=== PATIENT | female | born 1965 | race Caucasian/White ===

== ENCOUNTER → 2018-05-19 13:00 | Outpatient (CLI) | payer OTHER, SELFPAY | PROVIDERS: Family Provider Family Medicine; PCP Family Medicine | DX: Z23 Encounter for immunization (principal) | CPT/HCPCS: 90471; 90686 ==

== ENCOUNTER → 2018-07-02 14:08 | Outpatient (CLI) | payer OTHER, SELFPAY ==
--- NOTE | 2018-07-02 | DI.RAD.S_ITS ---
PROCEDURE: XR CHEST 2V INDICATIONS: COUGH TECHNIQUE: 2 views of the chest were acquired. COMPARISON: None. FINDINGS: Surgical changes and devices: None. Lungs and pleura: No pleural effusions or pneumothorax. Lungs are clear. 3 mm high density projecting in the left lung base on the frontal images not confirmed on the lateral view. Mediastinum: Mediastinal contours are normal. Heart size is normal. Bones and chest wall: No suspicious bony abnormalities. Soft tissues appear unremarkable. IMPRESSION: No acute disease. Dictated by: Rafy Peña M.D. on 07/02/2018 at 16:16 Approved by: Rafy Peña M.D. on 07/02/2018 at 16:18
== END ==
PROVIDERS: PCP Family Medicine; Visit Provider Family Medicine
DX: R05 Cough (principal)
CPT/HCPCS: 71046

== ENCOUNTER → 2018-08-14 11:50 | Outpatient (CLI) | payer OTHER, SELFPAY ==
--- NOTE | 2018-08-14 | DI.RAD.S_ITS ---
PROCEDURE: XR KNEE RT 3V INDICATIONS: RIGHT KNEE PAIN TECHNIQUE: 3 views of the knee were acquired. COMPARISON: None. FINDINGS: Bones: No fractures or dislocations. No suspicious bony lesions. Soft tissues: Moderate joint effusion. No suspicious soft tissue calcifications. IMPRESSION: Moderate effusion. No visualized acute fracture or dislocation. However, if clinical concern and/or pain persist, short interval imaging followup in 7-10 days is recommended, as occult injury cannot be definitively excluded. Dictated by: Elis Wan M.D. on 08/14/2018 at 12:34 Approved by: Elis Wan M.D. on 08/14/2018 at 12:34
== END ==
PROVIDERS: PCP Family Medicine; Visit Provider Family Medicine
DX: M25.561 Pain in right knee (principal); M25.461 Effusion, right knee
CPT/HCPCS: 73562

== ENCOUNTER → 2018-08-19 14:12 | Outpatient (CLI) | payer OTHER, SELFPAY ==
--- NOTE | 2018-08-19 | DI.MRI.S_ITS ---
PROCEDURE: MR KNEE RT WO CON INDICATIONS: Right knee pain TECHNIQUE: Noncontrast sagittal PD fast spin echo and T2 fast spin echo with fat saturation, sagittal 3-D FLASH with fat saturation; coronal T1 spin echo and PD fast spin echo with fat saturation, and axial PD fast spin echo with fat saturation through the knee. COMPARISON: [facility], CR, XR KNEE RT 3V, 08/14/2018, 11:56. FINDINGS: Image quality: Excellent. Menisci: Linear high signal intensity horizontally traverses the posterior horn medial meniscus, demonstrating inferior articular surface extension, indicating horizontal tearing. Amorphous high signal intensity within the medial meniscal body is present without articular surface extension, consistent with myxoid degeneration. Lateral meniscus is intact. Cruciate ligaments: The anterior and posterior cruciate ligaments appear intact. Medial structures: The medial collateral ligament appears intact. There is a small amount of fluid deep to the medial collateral ligament. Visualized portions of the pes anserinus tendons appear normal. There is a small amount of medial bursal fluid. Lateral structures: The lateral collateral ligament, long and short heads of the biceps femoris tendon appear intact. The popliteus tendon appears normal. Iliotibial band appears normal. Anterior structures: The quadriceps and patellar tendons appear intact. Patellar alignment is normal. No femoral trochlear dysplasia or ventral trochlear prominence. No edema in the infrapatellar fat pad. Bones and cartilage: No bone marrow contusions or fractures. Mild diffuse articular cartilage loss overlies the weightbearing aspects of the medial femoral condyle and medial tibial plateau. Mild articular cartilage loss overlies the lateral patellar facet. Joint space: There is physiologic knee joint fluid. No Nunez's cyst. Normal appearing synovial plicae are incidentally noted. IMPRESSION: 1. Medial meniscal degeneration and tearing as described above. 2. Mild medial bursitis. 3. Medial collateral ligament bursitis. 4. Medial and patellofemoral compartment articular cartilage loss. Dictated by: Yeny Wick M.D. on 08/19/2018 at 15:53 Approved by: Yeny Wick M.D. on 08/19/2018 at 15:56
== END ==
PROVIDERS: Family Provider Family Medicine; PCP Family Medicine; Visit Provider Family Medicine
DX: M25.561 Pain in right knee (principal); S83.241A Other tear of medial meniscus, current injury, right knee, initial encounter; M71.561 Other bursitis, not elsewhere classified, right knee
CPT/HCPCS: 73721

== ENCOUNTER 2018-08-24 08:15 | Outpatient (RCR) | payer OTHER, SELFPAY ==
--- NOTE | 2018-08-26 10:05 | PT.OIE ---
Current Diagnoses Pain in right knee (08/24/18) Provider Visit Care Team Role Provider Type Agnieszka Michelle MD Attending Provider Physician Family Provider Primary Care Provider Specialty: Family Practice Address: [address] [place] [address], [facility] Email: Physical Therapy Initial Evaluation PT-OP-A Visit Information Start: 08/24/18 07:28 Freq: Status: Active Protocol: Document 08/24/18 08:15 AMB (Rec: 08/24/18 08:18 AMB [id number]) Out-Patient Physical Therapy Visit Information Visit Information Visit Type Initial Evaluation Visit Start Time 08:15 Visit Stop Time 09:00 Total Visit Minutes 45 Evaluation Information Evaluation Date 08/24/18 PT-OP-B Current Condition Start: 08/24/18 07:28 Freq: Status: Active Protocol: Document 08/24/18 08:15 AMB (Rec: 08/26/18 08:13 AMB [email or web address]) Current Condition History of Current Condition Onset Date summer 2017 Current Complaints right medial knee pain, locking History of Current Condition The patient reports knee pain that is fairly constant, worse with activity (sit to stand, walking). Pt has not been hiking as much due to the pain . Denies specific injury. Does have a history of patellor femoral issues ( reports R knee cap slipped years ago). Prior Treatments and Tests MRI: 08/19/18: medial miniscal degeneration, MCL bursitis, medial and patellofemoral compartment articular cartilage loss. Treatment Goals Patient/Caregiver Goals Reduce knee pain Prior Functional Status Baseline Function- ADL's Independent Baseline Function- Mobility Independent Current Functional Impairments (Reported) Functional Limitations- Mobility/Gait Pt is limiting her activity, walking less. 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 PT-OP-C Subjective Start: 08/24/18 07:28 Freq: Status: Active Protocol: Document 08/24/18 08:15 AMB (Rec: 08/25/18 08:57 AMB [id number]) Patient Questionnaires Lower Extremity Functional Scale LEFS Score 44 LEFS Impairment 40 to 59% Impaired (Score 32- 47) OP-PT Pain Assessment Location Right Medial Knee Intensity 3 PT-OP-F Manual Assessment Start: 08/24/18 07:28 Freq: Status: Active Protocol: Document 08/24/18 08:15 AMB (Rec: 08/26/18 09:37 AMB [email or web address]) Manual Assessments Soft Tissue Assessment Soft Tissue Mobility Assessment Tender to palpation at medial joint line with mild joint effusion. PT-OP-G Mobility & Gait Start: 08/24/18 07:28 Freq: Status: Active Protocol: Document 08/24/18 08:15 AMB (Rec: 08/26/18 09:37 AMB [email or web address]) OP Gait Assessment Comments Gait Comments Pt concentrating on not limping so had good arm swing on L, but absent arm swing on R. Minimally antalgic gait with less weightbearing on the right, naturally more of a valgus knee posture. PT-OP-J Posture/Palpation/Skin Start: 08/24/18 07:28 Freq: Status: Active Protocol: Document 08/24/18 08:15 AMB (Rec: 08/26/18 09:37 AMB [email or web address]) Posture Evaluation Comments Posture Comments stands with more knee valgus, supinated foot position PT-OP-K Range of Motion Start: 08/24/18 07:28 Freq: Status: Active Protocol: Document 08/24/18 08:15 AMB (Rec: 08/26/18 09:37 AMB [email or web address]) Knee Goniometric Range of Motion Knee Measured in Degrees Right Flexion Active (degrees) 140 Extension Active (degrees) 0 Left Knee ROM WFL Yes PT-OP-M Strength Start: 08/24/18 07:28 Freq: Status: Active Protocol: Document 08/24/18 08:15 AMB (Rec: 08/26/18 09:37 AMB [email or web address]) Hip Strength Hip Manual Muscle Testing Left Flexion (L2) 5 Normal Extension (S1) 5 Normal Abduction 4+ Good+ Adduction 4+ Good+ Right Flexion (L2) 4 Good Extension (S1) 4 Good Abduction 4- Good- Adduction 4 Good Knee Strength Knee Manual Muscle Testing Right Flexion (S2) 4 Good Extension (L3) 4 Good Left Flexion (S2) 5 Normal Extension (L3) 5 Normal PT-OP-Q Treatments Start: 08/24/18 07:28 Freq: Status: Active Protocol: Document 08/24/18 08:15 AMB (Rec: 12/19/18 08:13 AMB [email or web address]) Therapeutic Exercises Supine Exercises 1 Supine Exercise Name heel slide Sidelying Exercises 1 Sidelying Exercise Name hip abduction Standing Exercises 1 Standing Exercise Name wall squat PT-OP-T Assessment and Plan Start: 08/24/18 07:28 Freq: Status: Active Protocol: Document 08/24/18 08:15 AMB (Rec: 08/26/18 10:00 AMB [email or web address]) Physical Therapy Assessment Rehab Potential Rehabilitation Potential Good Evaluation Complexity Number of Personal Factors/Comorbidities 0 Number of Body Systems Impaired 4 or More Clinical Presentation at Evaluation Stable Impairments Impairments Gait Pain Posture Strength Goals Two Impairment Functional activities Short Term Goal (STG) The patient will ambulate without antalgic gait for 10 minutes over smooth surfaces. 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 LTG Duration 8 weeks One Impairment Strength Short Term Goal (STG) The patient will improve her hip abduction strength to 4+/5 . STG Duration 4 weeks Snf Goal (LTG) The patient will improve her lower extremity strength so that she can ascend and descend a flight of stairs without knee pain. LTG Duration 8 weeks Assessment Summary Assessment Neyda attends physical therapy with medial right knee pain, with known medial meniscus tear from MRI. At this point she is considering conservative vs surgical options. She presents with a history of patellor femoral pain that is likely increasing her dysfunction at the knee as well as unilateral hip abduction weakness that impairs her body mechanics and posture. She would benefit from PT for stabilization of the lower extremity to return to a more active lifestyle. Physical Therapy Plan Frequency and Duration Frequency of Treatment 2x/Week Duration of Treatment 8 weeks Plan of Care Start Date 08/24/18 Plan of Care End Date 10/19/17 Therapeutic Interventions Therapeutic Interventions Aquatic Therapy Balance Training Gait Training Home Exercise Program Joint Mobilizations Manual Therapy Neuromuscular Re-education Self-Care/Home Management Taping Therapeutic Activities Therapeutic Exercises Modalities Cold Pack/Ice Massage Electric Stimulation Hot Packs Ultrasound Next Visit Focus/Plan Next Note Type Treatment Note Next Visit Plan Follow up on hip abduction strength, quad strength. Tolerance to HEP.
--- NOTE | 2018-08-26 10:06 | PT.OPPOC ---
Current Diagnoses Pain in right knee (08/24/18) Provider Visit Care Team Role Provider Type Agnieszka Michelle MD Attending Provider Physician Family Provider Primary Care Provider Specialty: Family Practice Address: [address] [place] [address], [facility] Email: Plan Of Care PT-OP-T Assessment and Plan Start: 08/24/18 07:28 Freq: Status: Active Protocol: Document 08/24/18 08:15 AMB (Rec: 08/26/18 10:00 AMB [email or web address]) Physical Therapy Assessment Rehab Potential Rehabilitation Potential Good Evaluation Complexity Number of Personal Factors/Comorbidities 0 Number of Body Systems Impaired 4 or More Clinical Presentation at Evaluation Stable Impairments Impairments Gait Pain Posture Strength Goals Two Impairment Functional activities Short Term Goal (STG) The patient will ambulate without antalgic gait for 10 minutes over smooth surfaces. STG Duration 4 weeks Nursing Home Goal (LTG) The patient will perform a full squat to supervisor picking crew her grandkids with good body mechanics without an increase in knee pain. LTG Duration 8 weeks One Impairment Strength Short Term Goal (STG) The patient will improve her hip abduction strength to 4+/5 . STG Duration 4 weeks Clinical Sales Consultant Goal (LTG) The patient will improve her lower extremity strength so that she can ascend and descend a flight of stairs without knee pain. LTG Duration 8 weeks Assessment Summary Assessment Neyda attends physical therapy with medial right knee pain, with known medial meniscus tear from MRI. At this point she is considering conservative vs surgical options. She presents with a history of patellor femoral pain that is likely increasing her dysfunction at the knee as well as unilateral hip abduction weakness that impairs her body mechanics and posture. She would benefit from PT for stabilization of the lower extremity to return to a more active lifestyle. Physical Therapy Plan Frequency and Duration Frequency of Treatment 2x/Week Duration of Treatment 8 weeks Plan of Care Start Date 08/24/18 Plan of Care End Date 10/19/17 Therapeutic Interventions Therapeutic Interventions Aquatic Therapy Balance Training Gait Training Home Exercise Program Joint Mobilizations Manual Therapy Neuromuscular Re-education Self-Care/Home Management Taping Therapeutic Activities Therapeutic Exercises Modalities Cold Pack/Ice Massage Electric Stimulation Hot Packs Ultrasound Next Visit Focus/Plan Next Note Type Treatment Note Next Visit Plan Follow up on hip abduction strength, quad strength. Tolerance to HEP. Plan of Care Dates Plan of Care Start Date 08/24/18 Plan of Care End Date 10/19/17 Please Sign and Return: I have reviewed this Plan of Care and certify that the skilled therapy services above are required to meet the patient?s needs. Physician Signature Date Printed Name and Credentials Clinical Instructor Signature Printed Name and Credentials
--- NOTE | 2018-10-06 07:54 | PT.OPDS ---
Current Diagnoses Pain in right knee (08/24/18) Provider Visit Care Team Role Provider Type Agnieszka Michelle MD Attending Provider Physician Family Provider Primary Care Provider Specialty: Family Practice Address: [address] [place] [address], [facility] Email: Discharge Summary PT-OP-B Current Condition Start: 08/24/18 07:28 Freq: Status: Active Protocol: Document 08/24/18 08:15 AMB (Rec: 08/26/18 08:13 AMB [email or web address]) Current Condition History of Current Condition Onset Date summer 2017 Current Complaints right medial knee pain, locking History of Current Condition The patient reports knee pain that is fairly constant, worse with activity (sit to stand, walking). Pt has not been hiking as much due to the pain . Denies specific injury. Does have a history of patellor femoral issues ( reports R knee cap slipped years ago). Prior Treatments and Tests MRI: 08/19/18: medial miniscal degeneration, MCL bursitis, medial and patellofemoral compartment articular cartilage loss. Treatment Goals Patient/Caregiver Goals Reduce knee pain Prior Functional Status Baseline Function- ADL's Independent Baseline Function- Mobility Independent Current Functional Impairments (Reported) Functional Limitations- Mobility/Gait Pt is limiting her activity, walking less. 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 PT-OP-C Subjective Start: 08/24/18 07:28 Freq: Status: Active Protocol: Document 08/24/18 08:15 AMB (Rec: 08/25/18 08:57 AMB [id number]) Patient Questionnaires Lower Extremity Functional Scale LEFS Score 44 LEFS Impairment 40 to 59% Impaired (Score 32- 47) OP-PT Pain Assessment Location Right Medial Knee Intensity 3 PT-OP-F Manual Assessment Start: 08/24/18 07:28 Freq: Status: Active Protocol: Document 08/24/18 08:15 AMB (Rec: 08/26/18 09:37 AMB [email or web address]) Manual Assessments Soft Tissue Assessment Soft Tissue Mobility Assessment Tender to palpation at medial joint line with mild joint effusion. PT-OP-G Mobility & Gait Start: 08/24/18 07:28 Freq: Status: Active Protocol: Document 08/24/18 08:15 AMB (Rec: 08/26/18 09:37 AMB [email or web address]) OP Gait Assessment Comments Gait Comments Pt concentrating on not limping so had good arm swing on L, but absent arm swing on R. Minimally antalgic gait with less weightbearing on the right, naturally more of a valgus knee posture. PT-OP-J Posture/Palpation/Skin Start: 08/24/18 07:28 Freq: Status: Active Protocol: Document 08/24/18 08:15 AMB (Rec: 08/26/18 09:37 AMB [email or web address]) Posture Evaluation Comments Posture Comments stands with more knee valgus, supinated foot position PT-OP-K Range of Motion Start: 08/24/18 07:28 Freq: Status: Active Protocol: Document 08/24/18 08:15 AMB (Rec: 08/26/18 09:37 AMB [email or web address]) Knee Goniometric Range of Motion Knee Measured in Degrees Right Flexion Active (degrees) 140 Extension Active (degrees) 0 Left Knee ROM WFL Yes PT-OP-M Strength Start: 08/24/18 07:28 Freq: Status: Active Protocol: Document 08/24/18 08:15 AMB (Rec: 08/26/18 09:37 AMB [email or web address]) Hip Strength Hip Manual Muscle Testing Left Flexion (L2) 5 Normal Extension (S1) 5 Normal Abduction 4+ Good+ Adduction 4+ Good+ Right Flexion (L2) 4 Good Extension (S1) 4 Good Abduction 4- Good- Adduction 4 Good Knee Strength Knee Manual Muscle Testing Right Flexion (S2) 4 Good Extension (L3) 4 Good Left Flexion (S2) 5 Normal Extension (L3) 5 Normal PT-OP-T Assessment and Plan Start: 08/24/18 07:28 Freq: Status: Active Protocol: Document 10/06/18 07:53 AMB (Rec: 10/06/18 07:54 AMB [email or web address]) Physical Therapy Assessment Assessment Summary Assessment Pt had surgery and did not need physical therapy afterwards, so she is discharged from PT at this time.
== END 2018-10-06 15:00 ==
LOC: PHYS 08:15
PROVIDERS: Family Provider Family Medicine; PCP Family Medicine; Visit Provider Family Medicine
DX: M25.561 Pain in right knee (principal)
CPT/HCPCS: 97110; 97161

== ENCOUNTER → 2019-06-29 15:02 | Outpatient (CLI) | payer OTHER, SELFPAY | PROVIDERS: PCP Family Medicine | DX: Z23 Encounter for immunization (principal) | CPT/HCPCS: 90471; 90686 ==

== ENCOUNTER → 2020-06-20 07:37 | Outpatient (CLI) | payer OTHER, SELFPAY | PROVIDERS: PCP Family Medicine; Referring Provider Internal Medicine; Visit Provider Internal Medicine | DX: Z23 Encounter for immunization (principal) | CPT/HCPCS: 90471; 90686 ==

== ENCOUNTER → 2020-09-13 12:37 | Outpatient (CLI) | payer OTHER, SELFPAY ==
[2020-09-13] MEDS: COVID-19 VACC(MODERNA-1)/PF 100 MCG/0.5 ML VIAL IM (12:41)
== END ==
PROVIDERS: PCP Family Medicine; Visit Provider Internal Medicine
DX: Z23 Encounter for immunization (principal)
CPT/HCPCS: 0011A; 91301

== ENCOUNTER → 2020-10-10 12:35 | Outpatient (CLI) | payer OTHER, SELFPAY ==
[2020-10-10] MEDS: COVID-19 VACC #2, MRNA(MOD) 100 MCG/0.5 ML VIAL IM (12:38)
== END ==
PROVIDERS: PCP Family Medicine; Visit Provider Internal Medicine
DX: Z23 Encounter for immunization (principal)
CPT/HCPCS: 0012A; 91301

== ENCOUNTER → 2021-08-14 15:08 | Outpatient (CLI) | payer OTHER, SELFPAY | PROVIDERS: PCP Family Medicine; Referring Provider Internal Medicine; Visit Provider Internal Medicine | DX: Z23 Encounter for immunization (principal) | CPT/HCPCS: 90471; 90686 ==

== ENCOUNTER → 2024-07-05 16:25 | Outpatient (CLI) | payer SELFPAY | PROVIDERS: PCP Family Medicine; Referring Provider Internal Medicine; Visit Provider Internal Medicine | DX: Z23 Encounter for immunization (principal) | CPT/HCPCS: 90471; 90656 ==

== ENCOUNTER → 2024-10-26 08:02 | Outpatient (CLI) | payer OTHER, SELFPAY ==
--- NOTE | 2024-10-26 08:02 | DI.US.S_ITS ---
PROCEDURE: US PELVIC COMPLETE INDICATIONS: ADNEXAL MASS TECHNIQUE: Real-time scanning was performed of the pelvic organs, with image documentation. Additional endovaginal scanning was necessary due to incomplete visualization of the adnexal and endometrial structures by transabdominal scanning. COMPARISON: None. FINDINGS: Uterus: 7.1 x 2.9 x 4.2 cm. Endometrium measures 3 mm, which is within normal limits. Homogeneous echotexture. Ovaries: Nonenlarged bilaterally, measuring under 1 cc. No significant mass or cystic lesion Other: No pathologic free abdominal or pelvic fluid. IMPRESSION: No acute or significant pelvic abnormality by ultrasound. Dictated by: Vito Pedersen M.D. on 10/26/2024 at 10:21 Approved by: Vito Pedersen M.D. on 10/26/2024 at 10:22
== END ==
LOC: US 08:02
PROVIDERS: PCP Family Medicine; Referring Provider Family Medicine; Visit Provider Family Medicine
DX: N94.89 Other specified conditions associated with female genital organs and menstrual cycle (principal)
CPT/HCPCS: 76830; 76856

== ENCOUNTER 2024-11-08 11:44 | Day surgery (SDC) | payer OTHER, SELFPAY ==
[2024-11-02 09:23] VITALS: BMI 22.3
--- NOTE | 2024-11-08 | PATH_ITS ---
[facility] Accession Number: [id number] No. of containers..02 Tissue . 01 Material submitted: . PART A: endocervix - ENDOCERVICAL LEEP PART B: cervix - ANTERIOR (LONG AT 12) POSTERIOR (SHORT AT 6) LIP OF CERVIX . 01 Diagnosis: A. 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 High-grade squamous intraepithelial lesion / CHRISTOPHER 2 extends to the black-inked (concave) and orange-inked (convex) tissue margins. No invasive tumor identified. . B. ANTERIOR (LONG AT 12), POSTERIOR (SHORT AT 6) LIP OF CERVIX, LEEP: . Anterior fragment (long at 12): High-grade squamous intraepithelial lesion / CHRISTOPHER 2 and adjacent involvement by low-grade squamous intraepithelal lesion / CHRISTOPHER 1 in the 9-12 and 12-3 o'clock quadrants. Low-grade squamous intraepithelial lesion / CHRISTOPHER 1 extends to the inked ectocervical margin in the 9-12 and 12-3 o'clock quadrants. A detached fragment of high grade squamous intraepithelial lesion / CHRISTOPHER-2 extends to the inked, electrocauterized endocervical margin in the 12-3 o'clock quadrant. Detached fragments of high grade squamous intraepithelial lesion / CHRISTOPHER-2 present at electrocauterized tissue margins in the 9-12 o'clock quadrant; indeterminate as to which margins due to tissue disruption. No invasive tumor identified. . Posterior fragment (short at 6): High grade squamous intraepithelial lesion / CHRISTOPHER-2 and separate regions of low grade squamous intraepithelial lesion / CHRISTOPHER-1 in the 3-6 and 6-9 o'clock quadrants with gland extension. Low grade squamous intraepithelial lesion / CHRISTOPHER-1 extends to the ectocervical margin in the 3-6 and 6-9 o'clock quadrants. Endocervical margin in the 3-6 o'clock quadrant obscured by electrocautery. Endocervical margin in the 6-9 o'clock quadrant negative for dysplasia. No invasive tumor identified. [facility] 11/12/2024 0953 Local . 01 Electronically signed: . Kaleigh Brown MD, Pathologist NPI- [id number] . 01 Gross description: . A. Received in formalin with two patient identifiers and endocervical LEEP, is an unoriented linear fragment of cervix, 2.2 x 0.7 x 0.3 cm with no ectocervix identified. The concave surface is inked black while the convex surface is inked orange. Inked blue, serially sectioned, and submitted entirely in A1-A2. B. Received in formalin with two patient identifiers and anterior posterior lip of cervix, are two oriented linear fragments of cervix. The first has a long suture designating anterior 12 o'clock per the requisition, and measures 2.0 x 1.3 x 0.5 cm. Inked orange at the endocervical margin and the remaining stromal margins are inked blue. The second fragment has a shorter suture at 6 posterior per the requisition and measures 1.6 x 0.9 x 0.4 cm. Inked endocervical margin orange and remaining stromal margins green. Both fragments have velasco, finely granular ectocervix. The fragments are serially sectioned and submitted entirely as follows: B1: Anterior portion 3 o'clock half. B2: Posterior portion 3 o'clock half. B3: Posterior portion 9 o'clock half. B4: Anterior portion, 9 o'clock half. ([id number]) /MRV 11/10/20241936 Local . 01 Pathologist provided ICD-10: N87.1, N87.0 . 01 CPT . 778545, [id number] Performed at: [address] [facility] [address], [place], [place] [id number] MD Trevor Nguyen MD Phone: [phone]
[2024-11-08] MEDS: LACTATED RINGERS 1,000 ML 42 ML IV (11:55)
[2024-11-08] MEDS: ACETAMINOPHEN 325 MG TABLET 650 MG PO (11:56)
[2024-11-08 12:22] VITALS: BP 100/73; PULSE 64; RESP 18; TEMP 36.4; O2SAT 100; BMI 22.3
--- NOTE | 2024-11-08 14:02 | SUR.OPER ---
Lithotomy on padded OR bed, head on pillow, arms secured on padded arm boards at <90 degrees abduction. Legs secured in padded yellow fins stirrups.
--- NOTE | 2024-11-08 14:08 | P.HPOB_ITS ---
History of Present Illness History of Present Illness Narrative: Lanny Lara is a 59 year old female 3 para 3 with CHRISTOPHER 2 of the cervix. She presents for a LEEP cone biopsy of the cervix [facility] Social History household members: spouse Smoking Status: Never smoker alcohol intake: current Meds Home Medications and Allergies Home Medications Medication Instructions Recorded Confirmed Type estradiol 0.025 mg/24 hr 1 patch transdermal 2XW 10/21/24 11/08/24 History semiweekly transdermal patch progesterone micronized 100 mg 100 mg PO QAM 10/21/24 10/21/24 History capsule Allergies Allergy/AdvReac Type Severity Reaction Status Date / Time No Known Drug Allergies Allergy Verified 11/08/24 11:50 Exam Vital Signs (past 8 hours): - 11/08/24 12:22 Temperature 97.6 F Pulse Rate 64 Respiratory Rate 18 Blood Pressure 100/73 Pulse Oximetry 100 Oxygen Delivery Method Room Air Oxygen Delivery Method Room Air Narrative Exam Narrative: HEENT: No thyromegaly, no anterior cervical or supraclavicular lymphadenopathy. Lungs:Clear to auscultation bilaterally, no wheezes. Cardiovascular: Regular rate and rhythm, no murmurs, rubs, or gallops. Abdomen: No scars. No hepatosplenomegaly. No masses palpable. External genitalia: Normal Vagina: Normal Cervix: Normal Bimanual exam: 6 Week size uterus. Mobile. Extremities: No edema Assessment & Plan Assessment & Plan narrative: Assessment: 59-year-old 3 para 3 with CHRISTOPHER 2 of the cervix Plan: LEEP cone biopsy of the cervix The risks, benefits, and alternatives to the procedure were explained to the patient. The risks include bleeding and infection. She understands these risks and agrees to proceed. A full par Q was held and consent form was signed. Time-Based Coding :: [TOTAL MINUTES] spent with patient and on the chart (including review of chart, obtaining history, exam, reviewing outside data, placing orders, documenting exam and treatment plan, and counseling patient) on [DATE].
--- NOTE | 2024-11-08 14:09 | PM.PREOP ---
Pre-operative Note Interval Note History & Physical reviewed/Exam performed by Physician: Yes Changes to H&P: No H&P completed within 30 days and has changed as indicated here:: 11/08/24
[2024-11-08 14:47] VITALS: BP 106/74; PULSE 72; RESP 15; TEMP 36.3; O2SAT 99
--- NOTE | 2024-11-08 14:47 | PM.GYNOP.1 ---
Operative Date/Time/Diagnoses Date of procedure: 11/08/24 Time of procedure: 14:47 Pre-op diagnosis: CHRISTOPHER 2 of the endo and ectocervix Post-op diagnosis: same Procedure & Clinicians Procedure: Procedures Operation Date: 11/08/24 13:15 Actual Procedure Side Surgeon p LEEP Cone Bx of cervix Leanna Neumann MD Indications: 59-year-old 3 para 3 with CHRISTOPHER 2 of the ecto and endocervix by colposcopic biopsy Surgeon: Leanna Neumann Anesthesia Type: General (LMA) Operative Notes Findings: Lugol's light area surrounding the cervical os and extending into the endocervix Closure Type: not applicable Specimen(s): other (Anterior and posterior lips of the cervix, endocervix) Estimated blood loss (mL): 3 Blood products transfused: none Procedure in detail: After informed consent was obtained, the patient was taken to the operating room where she was placed in the dorsal supine position. After adequate LMA general anesthesia was achieved, she was placed in the dorsal lithotomy position, and prepped and draped in the usual sterile fashion. A time-out was performed. A plastic coated bivalve speculum was placed into the vagina with suction attached. Lugol solution was applied to the cervix. There were Lugol's light areas surrounding the cervical os and extending into the endocervix. A plastic coated single-tooth tenaculum was placed on the anterior lip of the cervix. Using the 20 mm loop, with settings at 80 cut and 60 cautery, the posterior lip of the cervix was excised. Using the same loop the anterior lip of the cervix was excised. Using a smaller loop, an endocervical LEEP was also performed. The ball cautery was used for hemostasis. The specimens were tagged at the 6 o'clock position with a short suture and at the 12 o'clock position with a long suture. Hemostasis was achieved. The plastic coated single-tooth tenaculum was removed from the anterior lip of the cervix. The plastic coated bivalve speculum was removed from the vagina. Three sources of suction were used. The first on the speculum, a second attached to the cautery, and a mechanics handyman-held Yankauer. Everyone in the room was wearing a N95 mask. Sponge, lap, and instrument counts were correct x2. The patient tolerated the procedure well, and was taken to PACU in stable condition. Complications: none Post-operative Condition: stable Disposition: PACU Plan for aftercare: Home after recovery
[2024-11-08 14:52] VITALS: BP 113/79; PULSE 71; RESP 16; O2SAT 100
[2024-11-08 14:58] VITALS: BP 106/60; PULSE 57; RESP 18; TEMP 36.2; O2SAT 99
[2024-11-08 15:01] VITALS: BP 105/69; PULSE 52; RESP 18; O2SAT 100
== END 2024-11-08 15:31 | disposition home or self-care (01) ==
PROVIDERS: PCP Family Medicine; Referring Provider Obstetrics & Gynecology; Visit Provider Obstetrics & Gynecology
PROC: 0UBC7ZZ Excision of Cervix, Via Natural or Artificial Opening (ICD-10-PCS; CPT 57522; principal; 2024-11-08 13:15)
DX: N87.1 Moderate cervical dysplasia (principal)
CPT/HCPCS: 57522; J1885; J2405; J2704; J3010

== ENCOUNTER → 2024-11-15 17:49 | Outpatient (ROUT) | payer OTHER, SELFPAY ==
[2024-11-15 18:36] LABS: Influenza A - CEPHEID Flu A NEGATIVE (NEGATIVE); Influenza B - CEPHEID Flu B NEGATIVE (NEGATIVE); Respiratory Syncytial Virus Negative (Negative)
[2024-11-15 18:53] LABS: COVID-19 CEPHEID 4-PLEX PCR Negative (Negative)
== END ==
PROVIDERS: PCP Family Medicine; Visit Provider Family Medicine
DX: R21 Rash and other nonspecific skin eruption (principal); B34.9 Viral infection, unspecified
CPT/HCPCS: 0241U

== ENCOUNTER → 2025-08-11 15:31 | Outpatient (CLI) | payer OTHER, SELFPAY ==
--- NOTE | 2025-08-11 15:32 | DI.MG.S_ITS ---
MM screening mammo BI: 08/11/2025. BI-RADS: 1 CLINICAL: 59-year old female for bilateral screening mammogram. Tyrer-Cuzick lifetime risk of 5.3%. No personal or first-degree family history of breast cancer. PRIOR EXAMS: No prior examinations available. This is a baseline mammogram. MAMMOGRAPHY TECHNIQUE: 2D and 3D (tomosynthesis) digital mammographic views obtained, with additional images as needed for full coverage. Current study was also evaluated with a Computer Aided Detection (CAD) system. DENSITY C. The breasts are heterogeneously dense, which may obscure small masses. MAMMOGRAPHY FINDINGS Bilateral: No suspicious mass, asymmetry, microcalcification, or other abnormality seen. IMPRESSION: * No evidence of malignancy. RECOMMENDATIONS Bilateral * Annual screening mammography. OVERALL ASSESSMENT CATEGORY BI-RADS-1: Negative. The [employer] recommends annual screening mammography beginning at age 40 for women with average risk of breast cancer. ELECTRONICALLY SIGNED: Leandro Bridges M.D. on 08/12/2025 at 10:09:16 AM PT Interpreting Station ID: [id number]
== END ==
LOC: MAMMO 15:31
PROVIDERS: PCP Family Medicine; Referring Provider Family Medicine; Visit Provider Family Medicine
DX: Z12.31 Encounter for screening mammogram for malignant neoplasm of breast (principal); R92.333 Mammographic heterogeneous density, bilateral breasts
CPT/HCPCS: 77063; 77067